=== PATIENT | male | born 1965 | race Two or more races ===

== ENCOUNTER 2017-03-10 12:39 | Emergency (ER) | payer MEDICAID ==
[~2017-03-10] VITALS: Ht 175.3 cm; Wt 68.0 kg
[2017-03-10 14:15] LABS: Basophils # (auto) 0.1 uL; Basophils % (auto) 0.4 % (0.0-2.0); Eosinophils # (auto) 0.1 uL; Eosinophils % (auto) 0.5 % (0.0-7.0); Hematocrit 49.3 % (41.0-53.0); Hemoglobin 16.7 g/dL (13.5-17.5); Lymphocytes # (auto) 1.3 uL; Lymphocytes % (auto) 6.6 % (10.0-50.0); Mean Corpuscular Hemoglobin 31.4 pg (28.0-32.0); Mean Corpuscular Hgb Conc. 33.8 g/dL (32.0-36.0); Mean Corpuscular Volume 92.9 fL (80.0-100.0); Monocytes # (auto) 0.5 uL; Monocytes % (auto) 2.6 % (0.0-12.0); Neutrophils % (auto) 89.9 % (37.0-80.0); Nucleated Red Blood Cells % 0.1 %; Platelet Count (auto) 285 10^3/uL (140-450); Red Blood Cells 5.31 10^6/uL (4.5-5.90); Red Cell Distribution Width 12.9 % (11.8-14.3)
[2017-03-10] MEDS ORDERED: SUCCINYLCHOLINE CHLORIDE 20 MG/ML 10ML VIAL IV ONE ×2 (14:37→14:45)
[2017-03-10] MEDS ORDERED: ETOMIDATE (2MG/ML) 20ML VIAL IV ONE (14:37)
[2017-03-10 14:42] LABS: Alanine Aminotransferase 30 U/L (16-61); Albumin 4.2 g/dL (3.4-5.0); Alkaline Phosphatase 110 U/L (45-117); Anion Gap 7 (5-15); Aspartate Aminotransferase 13 U/L (15-37); BUN/Creatinine Ratio 9.6; Bilirubin, Total 0.6 mg/dL (0.2-1.0); Blood Urea Nitrogen 11 mg/dL (7-18); Calcium 9.1 mg/dL (8.5-10.1); Carbon Dioxide 25 mmol/L (21-32); Chloride 102 mmol/L (98-107); GFR African American 86 mL/min; GFR Non-African American 71 mL/min; Glucose 239 mg/dL (74-106); Magnesium 2.3 mg/dL (1.6-2.6); Potassium 4.4 mmol/L (3.5-5.1); Sodium 134 mmol/L (136-145); Total Protein 7.8 g/dL (6.4-8.2)
[2017-03-10] MEDS ORDERED: NICARDIPINE 25MG/250ML BAG KIT 250 ML IV ONE (14:44)
[2017-03-10] MEDS ORDERED: PROPOFOL 100 ML IV ONE (14:58)
[2017-03-10] MEDS ORDERED: PROPOFOL 100 ML IV SCH (15:03)
[2017-03-10] MEDS ORDERED: MANNITOL 20% SOLN 100 gm/500ml 250 ML IV ONE (15:15)
[2017-03-10] MEDS ORDERED: MIDAZOLAM DRIP 50 mg/50mL 50 ML IV ONE (15:15)
[2017-03-10] MEDS ORDERED: NICARDIPINE 25MG/250ML BAG KIT 250 ML IV SCH (15:15)
[2017-03-10] MEDS ORDERED: MANNITOL 20% SOLN 100 gm/500ml 350 ML IV ONE (15:30)
[2017-03-10 15:54] VITALS: BP 123/76
[2017-04-16] MEDS ORDERED: MIDAZOLAM DRIP 50 mg/50mL 50 ML IV SCH (09:32)
== END 2017-03-10 16:15 | disposition short-term general hospital (02) ==
LOC: EDBD 12:39 → ER 12:39
DX: I62.00 Nontraumatic subdural hemorrhage, unspecified (principal)
CPT/HCPCS: 31500; 36415; 51702; 70450; 71045; 80053; 80320; 83735; 84484; 85025; 93005; 94761; 96365; 96368; 99291; J0330; J2250; J2704; 85610; 85730; 94002

== ENCOUNTER 2021-09-26 18:01 | Inpatient (IN) | payer MEDICAID ==
[~2021-09-26] VITALS: Ht 170.2 cm; Wt 72.4 kg
[2021-09-26] MEDS ORDERED: LORazepam 2MG/ML-1ML VIAL IV ONE (19:00)
[2021-09-26 19:02] LABS: Basophils # (auto) 0 10 ^3/uL (0-0.2); Basophils % (auto) 0.4 % (0.0-2.0); Eosinophils # (auto) 0.4 10 ^3/uL (0-0.8); Eosinophils % (auto) 3.7 % (0.0-7.0); Hematocrit 42.6 % (41.0-53.0); Hemoglobin 14.2 g/dL (13.5-17.5); Lymphocytes # (auto) 2.2 10 ^3/uL (0.4-5.4); Lymphocytes % (auto) 23.2 % (10.0-50.0); Mean Corpuscular Hemoglobin 29.9 pg (28.0-32.0); Mean Corpuscular Hgb Conc. 33.3 g/dL (32.0-36.0); Mean Corpuscular Volume 89.8 fL (80.0-100.0); Monocytes # (auto) 0.5 10 ^3/uL (0-1.3); Monocytes % (auto) 5.5 % (0.0-12.0); Neutrophils # (auto) 6.5 10 ^3/uL (1.6-8.6); Neutrophils % (auto) 67.2 % (37.0-80.0); Red Blood Cells 4.74 10^6/uL (4.5-5.90); Red Cell Distribution Width 13.3 % (11.8-14.3); White Blood Cell 9.7 10^3/uL (4.4-10.8)
[2021-09-26] MEDS ORDERED: MIDAZOLAM HCL 5 MG/ML-1ML VIAL IV ONE ×3 (19:15→20:15)
[2021-09-26 19:19] LABS: BUN/Creatinine Ratio 11.5; Calcium 9.4 mg/dL (8.5-10.1); Potassium 3.7 mmol/L (3.5-5.1)
[2021-09-26 19:22] LABS: Bilirubin, Total 0.8 mg/dL (0.2-1.0); Total Protein 7.1 g/dL (6.4-8.2)
[2021-09-26] MEDS ORDERED: ACETAMINOPHEN 325 MG TAB PO PRN (22:00)
[2021-09-26] MEDS: SOD CHL 0.45% 1,000 ML IV SCH (22:00)
[2021-09-26] MEDS ORDERED: LORazepam 2MG/ML-1ML VIAL IV PRN (22:00)
[2021-09-26] MEDS ORDERED: ONDANSETRON HCL 4 MG/2 ML VIAL IV PRN (22:00)
[2021-09-26] MEDS ORDERED: DOCUSATE SOD 100 MG CAP PO PRN (22:00)
[2021-09-26] MEDS ORDERED: MORPHINE SULFATE INJ 2 MG/ml SYRG IV PRN (23:15)
[2021-09-26] MEDS ORDERED: NITROGLYCERIN 0.4 MG SL TAB SL PRN (23:15)
[2021-09-26] MEDS: HYDROcodone-ACET 5/325MG TAB PO PRN (23:58)
[2021-09-27] MEDS ORDERED: HALOPERIDOL LACTATE 5 MG/ML INJ VIAL ONE (04:29)
[2021-09-27] MEDS: HALOPERIDOL LACTATE 5 MG/ML INJ VIAL IM PRN ×3 (04:37→22:51)
[2021-09-27 05:02] LABS: Basophils # (auto) 0.1 10 ^3/uL (0-0.2); Basophils % (auto) 0.8 % (0.0-2.0); Eosinophils # (auto) 0.4 10 ^3/uL (0-0.8); Eosinophils % (auto) 4.8 % (0.0-7.0); Hematocrit 40.4 % (41.0-53.0); Hemoglobin 13.9 g/dL (13.5-17.5); Lymphocytes # (auto) 2.7 10 ^3/uL (0.4-5.4); Lymphocytes % (auto) 33.3 % (10.0-50.0); Mean Corpuscular Hemoglobin 30.8 pg (28.0-32.0); Mean Corpuscular Hgb Conc. 34.4 g/dL (32.0-36.0); Mean Corpuscular Volume 89.8 fL (80.0-100.0); Monocytes # (auto) 0.6 10 ^3/uL (0-1.3); Monocytes % (auto) 7.1 % (0.0-12.0); Neutrophils # (auto) 4.4 10 ^3/uL (1.6-8.6); Red Cell Distribution Width 13.1 % (11.8-14.3); White Blood Cell 8.1 10^3/uL (4.4-10.8)
[2021-09-27 05:19] LABS: Calcium 8.7 mg/dL (8.5-10.1); Potassium 3.3 mmol/L (3.5-5.1)
[2021-09-27 05:22] LABS: Bilirubin, Total 1.1 mg/dL (0.2-1.0); Total Protein 7.1 g/dL (6.4-8.2)
[2021-09-27] MEDS ORDERED: GOLYTELY 4L KIT PO ONE (09:15)
[2021-09-27 09:21] VITALS: BP 140/76
[2021-09-27] MEDS: FAMOTIDINE (10MG/ML) 2ML VL IV SCH (10:00)
[2021-09-27 13:00] VITALS: BP 120/77
[2021-09-27 16:31] VITALS: BP 134/75
[2021-09-27] MEDS ORDERED: BENZ1TAB2 PO (17:25)
[2021-09-27] MEDS ORDERED: ROPI0.5T18 PO (17:25)
[2021-09-27] MEDS ORDERED: SENN-62 PO (17:25)
[2021-09-27] MEDS ORDERED: HALO10TA18 PO (17:25)
[2021-09-27] MEDS ORDERED: AMLO-496 PO (17:25)
[2021-09-27] MEDS ORDERED: BUPR150T18 PO (17:25)
[2021-09-27] MEDS ORDERED: TRAZ1TAB12 PO (17:25)
[2021-09-27] MEDS: SOD CHL 0.45% 1,000 ML IV SCH (18:00)
[2021-09-27] MEDS ORDERED: LORazepam 2MG/ML-1ML VIAL IV PRN (20:30)
[2021-09-27] MEDS: HYDROcodone-ACET 5/325MG TAB PO PRN (22:50)
[2021-09-27 23:16] LABS: Free T4 (Free Thyroxine) 1.68 ng/dL (0.89-1.76)
[2021-09-28] VITALS (7 sets, daily range): BP systolic 123–153; BP diastolic 78–103
[2021-09-28] MEDS: FAMOTIDINE (10MG/ML) 2ML VL IV SCH (09:46)
[2021-09-28] MEDS: SOD CHL 0.45% 1,000 ML IV SCH (10:18)
[2021-09-28] MEDS: HALOPERIDOL LACTATE 5 MG/ML INJ VIAL IM PRN ×2 (12:38→22:49)
[2021-09-29 04:58] VITALS: BP 134/92
[2021-09-29 06:56] LABS: Basophils # (auto) 0 10 ^3/uL (0-0.2); Basophils % (auto) 0.4 % (0.0-2.0); Eosinophils # (auto) 0.2 10 ^3/uL (0-0.8); Eosinophils % (auto) 2.4 % (0.0-7.0); Hematocrit 40.3 % (41.0-53.0); Hemoglobin 14.1 g/dL (13.5-17.5); Lymphocytes # (auto) 2.3 10 ^3/uL (0.4-5.4); Mean Corpuscular Hemoglobin 31.6 pg (28.0-32.0); Mean Corpuscular Hgb Conc. 34.9 g/dL (32.0-36.0); Mean Corpuscular Volume 90.4 fL (80.0-100.0); Monocytes # (auto) 0.7 10 ^3/uL (0-1.3); Monocytes % (auto) 8.5 % (0.0-12.0); Neutrophils # (auto) 5.3 10 ^3/uL (1.6-8.6); Neutrophils % (auto) 61.7 % (37.0-80.0); Red Blood Cells 4.45 10^6/uL (4.5-5.90); Red Cell Distribution Width 13.2 % (11.8-14.3); White Blood Cell 8.6 10^3/uL (4.4-10.8)
[2021-09-29 07:00] LABS: BUN/Creatinine Ratio 12.2; Magnesium 1.9 mg/dL (1.6-2.6); Potassium 3.7 mmol/L (3.5-5.1)
[2021-09-29] MEDS: SOD CHL 0.45% 1,000 ML IV SCH (07:45)
[2021-09-29] MEDS: HALOPERIDOL LACTATE 5 MG/ML INJ VIAL IM PRN (07:45)
[2021-09-29] MEDS: FAMOTIDINE (10MG/ML) 2ML VL IV SCH (07:45)
[2021-09-29 08:00] VITALS: BP 139/86
[2021-09-29 08:17] VITALS: BP 139/86
[2021-09-29 11:28] VITALS: BP 139/86
== END 2021-09-29 11:41 | disposition home or self-care (01) | DRG 247 ==
LOC: ER 18:01 → EDBD 18:01 → OVERFLOW 23:09 → EAST 09-27 08:04
PROVIDERS: ADMIT Nurse Practitioner Family; ATTEND Internal Medicine
DX: K56.41 Fecal impaction (principal); N13.30 Unspecified hydronephrosis; R33.9 Retention of urine, unspecified; E11.9 Type 2 diabetes mellitus without complications; E87.6 Hypokalemia; F20.9 Schizophrenia, unspecified; F31.30 Bipolar disorder, current episode depressed, mild or moderate severity, unspecified; K21.9 Gastro-esophageal reflux disease without esophagitis; K52.9 Noninfective gastroenteritis and colitis, unspecified; Z20.822 Contact with and (suspected) exposure to COVID-19; J40 Bronchitis, not specified as acute or chronic; I10 Essential (primary) hypertension; R26.9 Unspecified abnormalities of gait and mobility; Z79.84 Long term (current) use of oral hypoglycemic drugs
CPT/HCPCS: 36415; 70450; 74176; 80048; 80053; 82140; 82150; 82607; 83036; 83690; 83735; 84439; 84443; 84484; 85025; 93005; 96374; 96376; G0378; J2250; J3490